=== PATIENT | male | born 1975 | race Caucasian/White ===

== ENCOUNTER 2016-05-01 12:31 | Day surgery (SDC) | payer BC ==
[2016-04-29 11:01] VITALS: BMI 24.3
[~2016-05-01 12:31] MED LIST: LACTATED RINGERS 1,000 ML IV SCH; LIDOCAINE 1% 20 ML VIAL (10MG/ML) FOR IV START INTRADERMA PRN
[2016-05-01 12:50] VITALS: RESP 16; TEMP 997.7
[2016-05-01] MEDS ORDERED: PROPOFOL 10 MG/ML 20 ML VIAL IV ONE (13:50)
--- NOTE | 2016-05-01 13:51 | P.GSHP ---
History of Present Illness H&P Date: 05/01/16 Chief Complaint: Diverticulitis Is a 40-year-old male referred from Dr. Wilbur Bruno. Patient presents today for colonoscopy. He's had issues with diverticulitis. Past Medical History Past Medical History: Asthma, GERD/Reflux, GI Bleed Additional Past Medical History / Comment(s): HX Diverticulosis, colon polyp, rectal bleed. Asthma as a child. Arthritis mild bilateral hands/knees. History of Any Multi-Drug Resistant Organisms: None Reported Past Surgical History: Appendectomy Additional Past Surgical History / Comment(s): colonoscopies, polypectomy. Past Anesthesia/Blood Transfusion Reactions: No Reported Reaction Past Psychological History: No Psychological Hx Reported Additional Psychological History / Comment(s): Pt resides with his spouse. He is independent. Smoking Status: Current every day smoker Past Alcohol Use History: Occasional Additional Past Alcohol Use History / Comment(s): Pt states he started smoking about 1989, 1/2 PPD. He has quit during this time frame, once for 4 yrs. Past Drug Use History: None Reported - Past Family History Father Family Medical History: No Reported History Additional Family Medical History / Comment(s): Father is healthy and 69yrs old. Mother Family Medical History: Cancer, Pulmonary Embolus Additional Family Medical History / Comment(s): Mother had colon cancer. She is 68yrs old. Medications and Allergies Home Medications Medication Instructions Recorded Confirmed Type Psyllium Husk (with Sugar) 6 gm PO DAILY PRN 04/29/16 05/01/16 History [Metamucil Powder] Allergies Allergy/AdvReac Type Severity Reaction Status Date / Time No Known Drug Allergies Allergy Unknown Verified 05/01/16 12:46 Surgical - Exam Vital Signs Temp Pulse Resp BP Pulse Ox 997.7 F H 78 16 129/76 100 05/01/16 12:42 05/01/16 12:42 05/01/16 12:42 05/01/16 12:42 05/01/16 12:42 - General well developed, no distress - Eyes PERRL - ENT normal pinna - Neck no masses - Respiratory normal expansion - Cardiovascular Rhythm: regular - Abdomen Abdomen: soft, non tender Assessment and Plan Plan: Diverticulitis. We'll perform colonoscopy.
--- NOTE | 2016-05-01 14:02 | P.OP ---
Date of Procedure: 05/01/16 Preoperative Diagnosis: Diverticulitis Postoperative Diagnosis: Rectal polyp Severe diverticulosis of sigmoid colon Procedure(s) Performed: Colonoscopy Anesthesia: MAC Surgeon: Jose Juan Vail Pathology: other (Rectal polyp) Condition: stable Disposition: PACU Description of Procedure: The patient's placed on the endoscopy table in the lateral position. He received IV sedation. Digital rectal exam was performed which revealed no abnormalities. The flexible colonoscope was then placed the patient's anus and passed throughout the entire colon. The ileocecal valve was visualized. The cecum, ascending and transverse colon appeared normal. The scope was brought back the descending colon was a few scattered diverticula. Scope was then brought back and the sigmoid colon and there is more extensive diverticular disease. There is some evidence of inflammation of the mucosa. The scope was then brought back the rectum and a small polyp was seen. This removed the forcep. The scope was then withdrawn from patient.
[2016-05-01 14:20] VITALS: BP 115/70; PULSE 68
== END 2016-05-01 14:44 | disposition home or self-care (01) ==
LOC: ORWHC2ENDO 12:31
PROVIDERS: ATTEND Surgery
DX: K62.1 Rectal polyp (principal); K57.30 Diverticulosis of large intestine without perforation or abscess without bleeding; Z80.0 Family history of malignant neoplasm of digestive organs; F17.200 Nicotine dependence, unspecified, uncomplicated; Z79.899 Other long term (current) drug therapy; Z79.2 Long term (current) use of antibiotics
CPT/HCPCS: 88305; 45380; J2704

== ENCOUNTER → 2016-05-20 | Outpatient (CLI) | payer BC ==
[2016-05-20 12:27] LABS: Potassium 4.6 mmol/L (3.5-5.1)
[2016-05-20 12:29] LABS: CH 29.8; CHCM 31.7; HCT 45.9 % (39.0-53.0); HDW 2.29; MCH 29.3 pg (25.0-35.0); MCHC 31.1 g/dL (31.0-37.0); MCV 94.2 fL (80.0-100.0); Mean Platelet Volume 7.2; RBC 4.87 m/uL (4.30-5.90); WBC 5.7 k/uL (3.8-10.6)
[2016-05-20 12:37] LABS: HGB 14.3 gm/dL (13.0-17.5)
== END | disposition home or self-care (01) ==
LOC: LABPAT 11:30
PROVIDERS: ATTEND Surgery
DX: Z01.812 Encounter for preprocedural laboratory examination (principal)
CPT/HCPCS: 80051; 85027

== ENCOUNTER 2016-05-21 07:45 | Inpatient (IN) | payer BC ==
[2016-05-16 08:48] VITALS: BMI 24.4
[~2016-05-21 07:45] MED LIST changes: +DEXAMETHASONE SOD PHOSPHATE 10 MG/ML 1 ML VIAL IV ONE; +HEPARIN SODIUM,PORCINE 5,000 UNIT/ML 1 ML VIAL SQ ONE; +HYDROmorphone 1 MG/ML 1 ML SYRINGE IVP PRN; -LACTATED RINGERS 1,000 ML IV SCH; +MIDAZOLAM 2 MG/2 ML VIAL IV PRN; +ONDANSETRON 4 MG/2 ML VIAL IVP ONE; +SCOPOLAMINE 1.5MG/72HR PATCH TRANSDERM ONE; +ceFAZolin 2 GM in SODIUM CHLORIDE 0.9% 100 ML IVPB ONE; +metroNIDAZOLE-NS PMX 500 MG in SALINE 1 100ML.BAG IVPB ONE
[2016-05-21] MEDS: LACTATED RINGERS 1,000 ML IV SCH (08:19)
[2016-05-21] MEDS ORDERED: MIDAZOLAM 2 MG/2 ML VIAL IV ONE (08:47)
[2016-05-21] MEDS ORDERED: fentaNYL (PF) 50 MCG/ML 5 ML AMP IVP STA (08:48)
[2016-05-21 08:51] LABS: Potassium 4.2 mmol/L (3.5-5.1)
--- NOTE | 2016-05-21 09:21 | P.GSHP ---
History of Present Illness H&P Date: 05/21/16 Chief Complaint: History of perforated diverticulitis 's is a 40-year-old male from Dr. Wilbur Bruno. Patient has extensive history of diverticulitis. He's had a recent hospital for perforated diverticula is. He presents today for low anterior section. Patient aware the risk of colostomy. - Constitutional Constitutional: Reports as per HPI Past Medical History Past Medical History: Asthma, GERD/Reflux, GI Bleed Additional Past Medical History / Comment(s): HX Diverticulosis, colon polyp, rectal bleed. Asthma as a child. Arthritis mild bilateral hands/knees. History of Any Multi-Drug Resistant Organisms: None Reported Past Surgical History: Appendectomy Additional Past Surgical History / Comment(s): colonoscopies, polypectomy. Past Anesthesia/Blood Transfusion Reactions: No Reported Reaction Additional Past Anesthesia/Blood Transfusion Reaction / Comment(s): no hx blood transfusion Past Psychological History: No Psychological Hx Reported Additional Psychological History / Comment(s): Pt resides with his spouse. He is independent. Smoking Status: Current every day smoker Past Alcohol Use History: Occasional Additional Past Alcohol Use History / Comment(s): Pt states he started smoking about 1989, 1/2 PPD. He has quit during this time frame, once for 4 yrs. Past Drug Use History: None Reported - Past Family History Father Family Medical History: Vascular Disorder Additional Family Medical History / Comment(s): Father is healthy and 69yrs old. Mother Family Medical History: Cancer, Pulmonary Embolus Additional Family Medical History / Comment(s): Mother had colon cancer. She is 68yrs old. Medications and Allergies Home Medications Medication Instructions Recorded Confirmed Type Psyllium Husk (with Sugar) 6 gm PO DAILY PRN 04/29/16 05/21/16 History [Metamucil Powder] Allergies Allergy/AdvReac Type Severity Reaction Status Date / Time No Known Drug Allergies Allergy Unknown Verified 05/16/16 08:42 Surgical - Exam Vital Signs Temp Pulse Resp BP Pulse Ox 98.1 F 82 16 132/66 98 05/21/16 08:28 05/21/16 08:28 05/21/16 08:28 05/21/16 08:28 05/21/16 08:28 - General well developed, no distress - Eyes PERRL - ENT normal pinna - Neck no masses - Respiratory normal expansion - Cardiovascular Rhythm: regular - Abdomen Abdomen: soft Results - Labs 05/21/16 08:35 Diabetes panel 05/21/16 Range/Units 08:35 Potassium 4.2 (3.5-5.1) mmol/L Pituitary panel 05/21/16 Range/Units 08:35 Potassium 4.2 (3.5-5.1) mmol/L Adrenal panel 05/21/16 Range/Units 08:35 Potassium 4.2 (3.5-5.1) mmol/L Assessment and Plan Plan: History of diverticula is. We'll perform low anterior resection.
[2016-05-21] MEDS ORDERED: NALOXONE 0.4 MG/ML 1 ML VIAL IV PRN (09:24)
[2016-05-21] MEDS ORDERED: GLYCOPYRROLATE 0.2 MG/ML 2 ML VIAL ONE (09:32)
[2016-05-21] MEDS ORDERED: HYDROmorphone (PF) 1 MG/ML ONE (09:32)
[2016-05-21] MEDS ORDERED: PROPOFOL 10 MG/ML 20 ML VIAL IV ONE (09:32)
[2016-05-21] MEDS ORDERED: fentaNYL (PF) 50 MCG/ML 2 ML AMP ONE (09:32)
[2016-05-21] MEDS ORDERED: MIDAZOLAM 2 MG/2 ML VIAL ONE (09:32)
[2016-05-21] MEDS ORDERED: NEOSTIGMINE 1 MG/ML 10 ML VIAL ONE (09:32)
[2016-05-21] MEDS ORDERED: ROCURONIUM BROMIDE 10 MG/ML 10 ML VIAL IV ONE (09:32)
[2016-05-21] MEDS ORDERED: LIDOCAINE 1% INJ 10MG/ML (20 ML MDV) ONE (09:32)
[2016-05-21] MEDS ORDERED: LACTATED RINGERS 1,000 ML IV ONE (10:34)
[2016-05-21] MEDS ORDERED: HYDROmorphone 1 MG/ML 1 ML SYRINGE IVP PRN (11:13)
[2016-05-21] MEDS ORDERED: BENZOCAINE/MENTHOL LOZENG 1 EACH LOZENGE MUCOUS MEM PRN (11:13)
[2016-05-21] MEDS ORDERED: ONDANSETRON 4 MG/2 ML VIAL IVP PRN (11:13)
--- NOTE | 2016-05-21 11:14 | P.OP ---
Date of Procedure: 05/21/16 Preoperative Diagnosis: Diverticulitis Postoperative Diagnosis: Diverticulitis Procedure(s) Performed: Low anterior resection Anesthesia: IRON Surgeon: Jose Juan Vail Estimated Blood Loss (ml): 10 Pathology: other Condition: stable Disposition: PACU Description of Procedure: The patient's placed on the operative table in the supine position. He received general anesthesia. His abdomen was prepped and draped usual sterile fashion after being placed in dorsal lithotomy position. An infra local skin incision was made and then using left cautery the subcutaneous tissue divided. The fascia was opened midline and the abdomen was entered. The Bookwalter retractor was used for retraction. The; appeared to be obviously inflamed and have evidence of diverticulitis. The colon was mobilized medially and then the rectum was transected with the ROSENDO stapler. Using the Harmonic scissors the mesentery the bowel was divided. The proximal colon was transected with a GI stapler. And then the pursestring device was applied to the proximal colon. The pursestring device was fired and then the hydro-gripwas placed across the proximal colon and then colon was opened. The anvil for the 25 mm EEA stapler was placed into the colon. The pursestring was secured. Next the EEA stapler was placed in patient's anus and the spike was driven through the rectal staple line. The anvil was then connected to the stapler and then the stapler was closed and fired. The stapler was then withdrawn. 2 intact doughnut rings were removed and stapler. The anastomosis was checked under air insufflation. There is no evidence of any leak. At this point the abdomen was irrigated. There is no bleeding seen. The fascia was closed loop #1 he has suture. The skin was closed chance. Patient was sent to recovery in stable condition.
[2016-05-21] MEDS: BUPIVACAINE 0.5% EPIDURAL PRN ×2 (11:58→12:10)
[2016-05-21] MEDS: SODIUM CHLORIDE 0.9% EPIDURAL PRN ×2 (11:58→12:10)
[2016-05-21] MEDS: HYDROMORPHONE EPIDURAL PRN ×2 (11:58→12:10)
[2016-05-21 12:16] LABS: ALT 47 U/L (21-72); AST 25 U/L (17-59); Alkaline Phosphatase 57 U/L (38-126); Anion Gap 9 mmol/L; Blood Urea Nitrogen 8 mg/dL (9-20); Calcium 9.1 mg/dL (8.4-10.2); Carbon Dioxide 25 mmol/L (22-30); Chloride 106 mmol/L (98-107); Glucose 157 mg/dL (74-99); Non-African American GFR(MDRD) >60 (>60 ml/min/1.73 sqM); Sodium 140 mmol/L (137-145); Total Bilirubin 0.7 mg/dL (0.2-1.3); Total Protein 6.8 g/dL (6.3-8.2)
[2016-05-21 13:28] LABS: Basophils % (A) 0 %; CH 29.3; CHCM 31.3; Eosinophils # (A) 0.1 k/uL (0-0.7); Eosinophils % (A) 1 %; HCT 45.3 % (39.0-53.0); HDW 2.28; HGB 14.2 gm/dL (13.0-17.5); Luc # (Auto) 0.03; Luc % (Auto) 0; Lymphocytes # (A) 0.4 k/uL (1.0-4.8); Lymphocytes % (A) 3 %; MCH 29.5 pg (25.0-35.0); MCHC 31.5 g/dL (31.0-37.0); MCV 93.7 fL (80.0-100.0); Mean Platelet Volume 6.5; Monocytes # (A) 0.2 k/uL (0-1.0); Monocytes % (A) 2 %; Neutrophils # (A) 12.3 k/uL (1.3-7.7); Neutrophils % (A) 94 %; RBC 4.83 m/uL (4.30-5.90); RDW 12.7 % (11.5-15.5)
[2016-05-21] MEDS: D5-0.45% NACL WITH KCL 20MEQ/L 1,000 ML IV SCH ×2 (14:48→20:33)
[2016-05-21] MEDS: METOCLOPRAMIDE 5 MG/ML 2 ML VIAL IVP SCH ×3 (14:48→23:19)
[2016-05-21] MEDS ORDERED: INFLUENZA VACCINE (3YR+) 60 MCG/0.5 ML SYRINGE IM ONE (15:42)
[2016-05-21] MEDS: ALVIMOPAN 12 MG CAPSULE PO SCH (21:37)
[2016-05-21] MEDS: FAMOTIDINE 20 MG/2 ML VIAL IV SCH (21:37)
[2016-05-22] MEDS: D5-0.45% NACL WITH KCL 20MEQ/L 1,000 ML IV SCH ×3 (04:00→22:15)
[2016-05-22] MEDS: LACTATED RINGERS 1,000 ML IV SCH (06:16)
[2016-05-22] MEDS: METOCLOPRAMIDE 5 MG/ML 2 ML VIAL IVP SCH ×4 (06:21→23:53)
[2016-05-22 08:39] LABS: Basophils % (A) 0 %; CH 29.7; CHCM 32.2; Eosinophils % (A) 0 %; HCT 38.6 % (39.0-53.0); HDW 2.26; HGB 11.9 gm/dL (13.0-17.5); Luc # (Auto) 0.06; Luc % (Auto) 1; Lymphocytes # (A) 0.9 k/uL (1.0-4.8); Lymphocytes % (A) 8 %; MCH 28.6 pg (25.0-35.0); MCHC 30.9 g/dL (31.0-37.0); MCV 92.5 fL (80.0-100.0); Mean Platelet Volume 7.3; Monocytes # (A) 0.7 k/uL (0-1.0); Monocytes % (A) 7 %; Neutrophils # (A) 9.1 k/uL (1.3-7.7); Neutrophils % (A) 84 %; RBC 4.17 m/uL (4.30-5.90); RDW 12.9 % (11.5-15.5); WBC 10.8 k/uL (3.8-10.6); WBC (Perox) 11.08
[2016-05-22 09:04] LABS: Anion Gap 8 mmol/L; Blood Urea Nitrogen 8 mg/dL (9-20); Calcium 8.5 mg/dL (8.4-10.2); Carbon Dioxide 24 mmol/L (22-30); Chloride 103 mmol/L (98-107); Glucose 151 mg/dL (74-99); Non-African American GFR(MDRD) >60 (>60 ml/min/1.73 sqM); Potassium 4.6 mmol/L (3.5-5.1); Sodium 135 mmol/L (137-145)
--- NOTE | 2016-05-22 09:31 | P.PN ---
Progress Note - Text Postoperative day 1 status post low anterior resection under general endotracheal anesthesia, an epidural catheter placed for postoperative analgesia , patient doing well with vital signs stable, epidural site okay, patient had no motor deficit, including he is currently on continuous infusion Dilaudid/ bupivacaine at 6 mL per hour, VAS 0/10 Assessment and plan= course of the one , patient doing well, good pain control, we will continue the same management
[2016-05-22] MEDS: ALVIMOPAN 12 MG CAPSULE PO SCH ×2 (09:38→21:37)
[2016-05-22] MEDS: FAMOTIDINE 20 MG/2 ML VIAL IV SCH ×2 (09:38→21:37)
[2016-05-22] MEDS: HYDROmorphone 1 MG/ML 1 ML SYRINGE IVP PRN ×3 (14:24→21:37)
--- NOTE | 2016-05-22 15:02 | P.PN ---
Subjective Principal diagnosis: Diverticulitis Patient is a 40-year-old male with a medical history significant for extensive diverticulitis with recent perforation presenting to the hospital for elective low anterior resection. Patient is evaluated on the medical floor where he is postop day #1. Patient is doing well. Denies chills, fevers, nausea, vomiting , shortness of breath, or chest pain. Patient states he barely has any incisional pain with epidural infusing. Patient denies flatus or bowel movements. Tolerating clear liquid diet. Urinary output adequate. T-max the last 24 hours 99.2. Hemodynamically stable.WBC decreased to 10.8. Hemoglobin decreased to 11.9. Objective - Vital Signs Vital signs: Vital Signs Temp 97.6 F 05/22/16 07:00 Pulse 96 05/22/16 07:00 Resp 18 05/22/16 07:00 BP 111/64 05/22/16 07:00 Pulse Ox 95 05/22/16 07:00 Intake & Output 05/21/16 05/22/16 05/22/16 18:59 06:59 18:59 Intake Total 2114 68.617 Output Total 700 1400 Balance 1414 -1331.383 Intake: IV 1614 Intake, IV Titration 68.617 Amount Bupivacaine (Pf) 0.5% 37. 68.617 5 ml HYDROmorphone 5 mg In Sodium Chloride 0.9% 210 ml @ Per Protocol EPIDURAL .Q0M PRN Rx#: [id number] Oral 500 Output: Urine 650 1400 Estimated Blood Loss 50 Other: Voiding Method Indwelling Catheter Indwelling Catheter Indwelling Catheter # Voids 1 - Exam GENERAL: Pt awake and alert, well-appearing, well-nourished, and in no acute distress. LUNGS: Breath sounds clear to auscultation bilaterally. No wheezes, rales, or rhonchi. HEART: Heart S1, S2, no S3 or S4. Regular rate and rhythm. No murmurs, rubs or gallops. ABDOMEN: Soft, mild incisional tenderness, nondistended, normoactive bowel sounds. No guarding, no rebound. Abdominal dressing with old sanguinous drainage. NEUROLOGICAL: Pt oriented x 3. - Labs CBC & Chem 7: 05/22/16 08:17 05/22/16 08:17 Labs: Abnormal Lab Results - Last 24 Hours (Table) 05/22/16 05/22/16 Range/Units 08:17 08:17 WBC 10.8 H (3.8-10.6) k/uL RBC 4.17 L (4.30-5.90) m/uL Hgb 11.9 L (13.0-17.5) gm/dL Hct 38.6 L (39.0-53.0) % MCHC 30.9 L (31.0-37.0) g/dL Neutrophils # 9.1 H (1.3-7.7) k/uL Lymphocytes # 0.9 L (1.0-4.8) k/uL Sodium 135 L (137-145) mmol/L BUN 8 L (9-20) mg/dL Glucose 151 H (74-99) mg/dL Assessment and Plan Plan: Impression: 1. Diverticulitis status post low anterior resection on 05/21/2016. Plan: Continue to monitor patient. Continue clear liquid diet. Continue IV hydration. Continue supportive treatment and pain management. Increase activity. Continue incentive spirometry 10 times an hour while awake. Repeat CBC and BMP in a.m. Continue follow with medical team. The above impression and plan have been discussed and directed by Dr. Vail. Isabell ABAD acting as scribe for Dr. Vail.
[2016-05-22] MEDS: BUPIVACAINE 0.5% EPIDURAL PRN (15:15)
[2016-05-22] MEDS: HYDROMORPHONE EPIDURAL PRN (15:15)
[2016-05-22] MEDS: SODIUM CHLORIDE 0.9% EPIDURAL PRN (15:15)
--- NOTE | 2016-05-22 16:24 | P.CONS ---
History of Present Illness - Reason for Consult Consult date: 05/22/16 Medical management Requesting physician: Jose Juan Vail - Chief Complaint Abdominal pain - History of Present Illness Patient is a 40-year-old male with a medical history significant for extensive diverticulitis with recent perforation presenting to the hospital for elective low anterior resection. Patient is evaluated on the medical floor where he is postop day #1. Patient is doing well. Denies chills, fevers, nausea, vomiting , shortness of breath, or chest pain. Patient states he barely has any incisional pain with epidural infusing. Patient denies flatus or bowel movements. Tolerating clear liquid diet. Urinary output adequate. T-max the last 24 hours 99.2. Hemodynamically stable.WBC decreased to 10.8. Hemoglobin decreased to 11.9. Past Medical History Past Medical History: Asthma, GERD/Reflux, GI Bleed Additional Past Medical History / Comment(s): HX Diverticulosis, colon polyp, rectal bleed. Asthma as a child. Arthritis mild bilateral hands/knees. History of Any Multi-Drug Resistant Organisms: None Reported Past Surgical History: Appendectomy Additional Past Surgical History / Comment(s): colonoscopies, polypectomy; low anterior bowel resection. Past Anesthesia/Blood Transfusion Reactions: No Reported Reaction Additional Past Anesthesia/Blood Transfusion Reaction / Comm: no hx blood transfusion Past Psychological History: No Psychological Hx Reported Additional Psychological History / Comment(s): Pt resides with his spouse. He is independent. Smoking Status: Current every day smoker Past Alcohol Use History: Occasional Additional Past Alcohol Use History / Comment(s): Pt states he started smoking about 1989, 1/2 PPD. He has quit during this time frame, once for 4 yrs. Past Drug Use History: None Reported - Past Family History Father Family Medical History: Vascular Disorder Additional Family Medical History / Comment(s): Father is healthy and 69yrs old. Mother Family Medical History: Cancer, Pulmonary Embolus Additional Family Medical History / Comment(s): Mother had colon cancer. She is 68yrs old. Medications and Allergies Home Medications Medication Instructions Recorded Confirmed Type Psyllium Husk (with Sugar) 6 gm PO DAILY PRN 04/29/16 05/21/16 History [Metamucil Powder] Allergies Allergy/AdvReac Type Severity Reaction Status Date / Time No Known Drug Allergies Allergy Unknown Verified 05/16/16 08:42 Physical Exam Vitals: Vital Signs Temp Pulse Resp BP BP Pulse Ox 05/22/16 15:00 97.3 F L 71 16 121/68 94 L 05/22/16 07:00 97.6 F 96 18 111/64 95 05/21/16 23:00 99.2 F 84 16 103/70 94 L 05/21/16 19:00 76 125/77 113/81 94 L Intake and Output 05/22/16 05/22/16 05/22/16 06:59 14:59 22:59 Intake Total 68.617 66.5 Output Total 600 1000 Balance -531.383 -1000 66.5 Intake: Intake, IV Titration 68.617 66.5 Amount Bupivacaine (Pf) 0.5% 37. 68.617 66.5 5 ml HYDROmorphone 5 mg In Sodium Chloride 0.9% 210 ml @ Per Protocol EPIDURAL .Q0M PRN Rx#: [id number] Output: Urine 600 1000 Other: Voiding Method Indwelling Catheter Indwelling Catheter GENERAL: Pt awake and alert, well-appearing, well-nourished, and in no acute distress. HEAD: Atraumatic, normocephalic. EYES: Pupils equal, round, and reactive to light, extraocular movements intact, sclera anicteric, conjunctiva are normal. ENT: Oropharynx clear without exudates. Moist mucous membranes. Tongue smooth, pink, no lesions, protrudes in midline. NECK:Normal range of motion, supple without lymphadenopathy or JVD. No carotid bruits. Thyroid midline, small and firm without palpable masses. LUNGS: Breath sounds clear to auscultation bilaterally. No wheezes, rales, or rhonchi. HEART: Heart S1, S2, no S3 or S4. No murmurs, rubs or gallops. ABDOMEN: Soft, nontender, nondistended, normoactive bowel sounds. No guarding, no rebound. Abdominal dressing with old sanguinous drainage. EXTREMITIES: 2+ peripheral pulses. No edema.No calf tenderness. NEUROLOGICAL: Pt oriented x 3. No focal deficits. Strength and sensation grossly intact. PSYCH: Normal mood, normal affect. SKIN: Warm, dry, intact. Normal turgor. No rashes or lesions. Results CBC & Chem 7: 05/22/16 08:17 05/22/16 08:17 Labs: Abnormal Lab Results - Last 24 Hours (Table) 05/22/16 05/22/16 Range/Units 08:17 08:17 WBC 10.8 H (3.8-10.6) k/uL RBC 4.17 L (4.30-5.90) m/uL Hgb 11.9 L (13.0-17.5) gm/dL Hct 38.6 L (39.0-53.0) % MCHC 30.9 L (31.0-37.0) g/dL Neutrophils # 9.1 H (1.3-7.7) k/uL Lymphocytes # 0.9 L (1.0-4.8) k/uL Sodium 135 L (137-145) mmol/L BUN 8 L (9-20) mg/dL Glucose 151 H (74-99) mg/dL Assessment and Plan Plan: Impression: 1. Diverticulitis status post low anterior resection on 05/21/2016. 2. Leukocytosis, suspect reactive, improving. Hemoglobin 10.8. 3. Anemia, postop. Suspect secondary to blood loss and hemodilution. 4. Hyponatremia. 5. Increased random blood sugar, suspect reactive. 6. GERD. 7. History of diverticulosis. 8. Osteoarthritis multiple joints. 9. Nicotine dependence. Plan: Continue to monitor patient. Continue surgical management by surgical service. Continue current medications. Continue GI and DVT prophylaxis. Continue IV hydration. Continue supportive treatment and pain management. Increase activity. Continue incentive spirometry 10 times an hour while awake. Repeat CBC and BMP in a.m. Continue follow with surgical team. The above impression and plan have been discussed and directed by Dr. Stone. Isabell ABAD acting as scribe for Dr. Stone.
[2016-05-23] MEDS: D5-0.45% NACL WITH KCL 20MEQ/L 1,000 ML IV SCH ×3 (05:25→19:45)
[2016-05-23] MEDS: HYDROmorphone 1 MG/ML 1 ML SYRINGE IVP PRN ×4 (06:32→22:35)
[2016-05-23] MEDS: METOCLOPRAMIDE 5 MG/ML 2 ML VIAL IVP SCH ×4 (06:32→23:56)
--- NOTE | 2016-05-23 08:37 | P.CON ---
Consult Note - . Assessment/Plan:: pod number 2 status post epidural doing ok; will dc epidural today possible discharge tomorrow; no neuro events
[2016-05-23] MEDS: FAMOTIDINE 20 MG/2 ML VIAL IV SCH ×2 (09:45→20:40)
[2016-05-23] MEDS: ALVIMOPAN 12 MG CAPSULE PO SCH ×2 (09:45→20:53)
[2016-05-23 10:00] LABS: Basophils % (A) 0 %; CH 29.5; CHCM 31.6; Eosinophils # (A) 0.1 k/uL (0-0.7); Eosinophils % (A) 1 %; HCT 37.1 % (39.0-53.0); HGB 11.6 gm/dL (13.0-17.5); Luc % (Auto) 1; Lymphocytes # (A) 1.8 k/uL (1.0-4.8); Lymphocytes % (A) 24 %; MCH 29.3 pg (25.0-35.0); MCHC 31.4 g/dL (31.0-37.0); MCV 93.4 fL (80.0-100.0); Mean Platelet Volume 7.7; Monocytes # (A) 0.7 k/uL (0-1.0); Monocytes % (A) 10 %; Neutrophils % (A) 65 %; RBC 3.97 m/uL (4.30-5.90); RDW 12.8 % (11.5-15.5); WBC 7.7 k/uL (3.8-10.6); WBC (Perox) 8.71
[2016-05-23 10:21] LABS: Anion Gap 9 mmol/L; Blood Urea Nitrogen 6 mg/dL (9-20); Calcium 8.4 mg/dL (8.4-10.2); Carbon Dioxide 28 mmol/L (22-30); Chloride 102 mmol/L (98-107); Glucose 94 mg/dL (74-99); Non-African American GFR(MDRD) >60 (>60 ml/min/1.73 sqM); Sodium 139 mmol/L (137-145)
--- NOTE | 2016-05-23 15:22 | P.PN ---
Subjective Principal diagnosis: Diverticulitis Patient is a 40-year-old male with a medical history significant for extensive diverticulitis with recent perforation presenting to the hospital for elective low anterior resection. Patient is evaluated on the medical floor where he is postop day #2. Patient is doing well. Denies chills, fevers, nausea, vomiting , shortness of breath, or chest pain. Incisional pain controlled. Reports flatus without bowel movements. Tolerating clear liquid diet. Urinary output adequate. Afebrile. Hemodynamically stable. No evidence of leukocytosis. Hemoglobin stable at 11.6. Objective - Vital Signs Vital signs: Vital Signs Temp 97.3 F L 05/23/16 07:00 Pulse 66 05/23/16 07:00 Resp 16 05/23/16 07:00 BP 114/58 05/23/16 07:00 Pulse Ox 94 L 05/23/16 07:00 Intake & Output 05/22/16 05/23/16 05/23/16 18:59 06:59 18:59 Intake Total 66.5 87.8 1000 Output Total 1000 2100 Balance -933.5 -2012.2 1000 Intake: Intake, IV Titration 66.5 87.8 1000 Amount Bupivacaine (Pf) 0.5% 37. 66.5 87.8 5 ml HYDROmorphone 5 mg In Sodium Chloride 0.9% 210 ml @ Per Protocol EPIDURAL .Q0M PRN Rx#: [id number] D5-0.45% NaCl with KCl 1000 20Meq/l 1,000 ml @ 125 mls/hr IV .Q8H LEEROY Rx#: [id number] Output: Urine 1000 2100 Other: Voiding Method Indwelling Catheter Indwelling Catheter Indwelling Catheter - Exam GENERAL: Pt awake and alert, well-appearing, well-nourished, and in no acute distress. LUNGS: Breath sounds clear to auscultation bilaterally. No wheezes, rales, or rhonchi. HEART: Heart S1, S2, no S3 or S4. Regular rate and rhythm. No murmurs, rubs or gallops. ABDOMEN: Soft, mild incisional tenderness, nondistended, normoactive bowel sounds. No guarding, no rebound. Abdominal dressing with old sanguinous drainage. NEUROLOGICAL: Pt oriented x 3. - Labs CBC & Chem 7: 05/23/16 08:17 05/23/16 08:17 Labs: Abnormal Lab Results - Last 24 Hours (Table) 05/23/16 05/23/16 Range/Units 08:17 08:17 RBC 3.97 L (4.30-5.90) m/uL Hgb 11.6 L (13.0-17.5) gm/dL Hct 37.1 L (39.0-53.0) % BUN 6 L (9-20) mg/dL Assessment and Plan Plan: Impression: 1. Diverticulitis status post low anterior resection on 05/21/2016. 2. Leukocytosis, suspect reactive, resolved. 3. Anemia, postop. Suspect secondary to blood loss and hemodilution. 4. History of diverticulosis. Plan: Continue to monitor patient. Discontinue epidural catheter and Kimball catheter. Increase diet to full liquids. Continue current medications. Continue GI and DVT prophylaxis. Continue IV hydration. Continue supportive treatment and pain management. Increase activity. Continue incentive spirometry 10 times an hour while awake. Repeat CBC and BMP in a.m. Continue follow with medical team. The above impression and plan have been discussed and directed by Dr. Vail. Isabell ABAD acting as scribe for Dr. Vail.
--- NOTE | 2016-05-23 16:39 | P.PN ---
Subjective Principal diagnosis: Diverticulitis Patient is a 40-year-old male with a medical history significant for extensive diverticulitis with recent perforation presenting to the hospital for elective low anterior resection. Patient is evaluated on the medical floor where he is postop day #3. Patient is doing well. Denies chills, fevers, nausea, vomiting , shortness of breath, or chest pain. Incisional pain controlled. Reports flatus without bowel movements. Tolerating clear liquid diet. Urinary output adequate. Afebrile. Hemodynamically stable. No evidence of leukocytosis. Hemoglobin stable at 11.6. Objective - Vital Signs Vital signs: Vital Signs Temp 96.6 F L 05/23/16 15:00 Pulse 65 05/23/16 15:00 Resp 16 05/23/16 15:00 BP 113/77 05/23/16 15:00 Pulse Ox 95 05/23/16 15:00 Intake & Output 05/22/16 05/23/16 05/23/16 18:59 06:59 18:59 Intake Total 66.5 87.8 1000 Output Total 1000 2100 Balance -933.5 -2012.2 1000 Intake: Intake, IV Titration 66.5 87.8 1000 Amount Bupivacaine (Pf) 0.5% 37. 66.5 87.8 5 ml HYDROmorphone 5 mg In Sodium Chloride 0.9% 210 ml @ Per Protocol EPIDURAL .Q0M PRN Rx#: [id number] D5-0.45% NaCl with KCl 1000 20Meq/l 1,000 ml @ 125 mls/hr IV .Q8H LEEROY Rx#: [id number] Output: Urine 1000 2100 Other: Voiding Method Indwelling Catheter Indwelling Catheter Indwelling Catheter - Exam GENERAL: Pt awake and alert, well-appearing, well-nourished, and in no acute distress. HEAD: Atraumatic, normocephalic. EYES: Pupils equal, round, and reactive to light, extraocular movements intact, sclera anicteric, conjunctiva are normal. ENT: Oropharynx clear without exudates. Moist mucous membranes. Tongue smooth, pink, no lesions, protrudes in midline. NECK:Normal range of motion, supple without lymphadenopathy or JVD. No carotid bruits. Thyroid midline, small and firm without palpable masses. LUNGS: Breath sounds clear to auscultation bilaterally. No wheezes, rales, or rhonchi. HEART: Heart S1, S2, no S3 or S4. No murmurs, rubs or gallops. ABDOMEN: Soft, nontender, nondistended, normoactive bowel sounds. No guarding, no rebound. Abdominal dressing with old sanguinous drainage. EXTREMITIES: 2+ peripheral pulses. No edema.No calf tenderness. NEUROLOGICAL: Pt oriented x 3. No focal deficits. Strength and sensation grossly intact. PSYCH: Normal mood, normal affect. SKIN: Warm, dry, intact. Normal turgor. No rashes or lesions. - Labs CBC & Chem 7: 05/23/16 08:17 05/23/16 08:17 Labs: Abnormal Lab Results - Last 24 Hours (Table) 05/23/16 05/23/16 Range/Units 08:17 08:17 RBC 3.97 L (4.30-5.90) m/uL Hgb 11.6 L (13.0-17.5) gm/dL Hct 37.1 L (39.0-53.0) % BUN 6 L (9-20) mg/dL Assessment and Plan Plan: Impression: 1. Diverticulitis status post low anterior resection on 05/21/2016. 2. Leukocytosis, suspect reactive, improving. 3. Anemia, postop. Suspect secondary to blood loss and hemodilution. Hemoglobin stable at 11.6. 4. Hyponatremia, resolved. 5. Increased random blood sugar, suspect reactive. 6. GERD. 7. History of diverticulosis. 8. Osteoarthritis multiple joints. 9. Nicotine dependence. Plan: Continue to monitor patient. Continue surgical management by surgical service. Continue current medications. Continue GI and DVT prophylaxis. Continue IV hydration. Continue supportive treatment and pain management. Increase activity. Continue incentive spirometry 10 times an hour while awake. Repeat CBC and BMP in a.m. The above impression and plan have been discussed and directed by Dr. Stone. Isabell ABAD acting as scribe for Dr. Stone.
[2016-05-24] MEDS: D5-0.45% NACL WITH KCL 20MEQ/L 1,000 ML IV SCH ×2 (05:01→12:24)
[2016-05-24] MEDS: METOCLOPRAMIDE 5 MG/ML 2 ML VIAL IVP SCH ×2 (06:20→12:25)
[2016-05-24 07:55] VITALS: BP 115/70; PULSE 61; RESP 18; TEMP 97.1
[2016-05-24] MEDS: FAMOTIDINE 20 MG/2 ML VIAL IV SCH (08:28)
[2016-05-24] MEDS: ALVIMOPAN 12 MG CAPSULE PO SCH (08:28)
[2016-05-24] MEDS: HYDROmorphone 1 MG/ML 1 ML SYRINGE IVP PRN (08:42)
[2016-05-24 08:44] LABS: Basophils % (A) 1 %; CH 29.3; CHCM 31.4; Eosinophils # (A) 0.2 k/uL (0-0.7); Eosinophils % (A) 3 %; HCT 38.1 % (39.0-53.0); HGB 12.4 gm/dL (13.0-17.5); Luc # (Auto) 0.19; Luc % (Auto) 3; Lymphocytes # (A) 1.8 k/uL (1.0-4.8); Lymphocytes % (A) 31 %; MCH 30.5 pg (25.0-35.0); MCHC 32.6 g/dL (31.0-37.0); MCV 93.5 fL (80.0-100.0); Mean Platelet Volume 6.4; Monocytes # (A) 0.6 k/uL (0-1.0); Monocytes % (A) 10 %; Neutrophils # (A) 3.1 k/uL (1.3-7.7); Neutrophils % (A) 53 %; RBC 4.07 m/uL (4.30-5.90); RDW 12.6 % (11.5-15.5); WBC 5.9 k/uL (3.8-10.6); WBC (Perox) 6.47
[2016-05-24 09:00] LABS: Anion Gap 9 mmol/L; Blood Urea Nitrogen 6 mg/dL (9-20); Calcium 8.8 mg/dL (8.4-10.2); Carbon Dioxide 28 mmol/L (22-30); Chloride 103 mmol/L (98-107); Glucose 83 mg/dL (74-99); Non-African American GFR(MDRD) >60 (>60 ml/min/1.73 sqM); Potassium 4.2 mmol/L (3.5-5.1); Sodium 140 mmol/L (137-145)
--- NOTE | 2016-05-24 15:58 | P.PN ---
Subjective Principal diagnosis: Diverticulitis Patient is a 40-year-old male with a medical history significant for extensive diverticulitis with recent perforation presenting to the hospital for elective low anterior resection. Patient is evaluated on the medical floor where he is postop day #4. Patient is doing well. Denies chills, fevers, nausea, vomiting , shortness of breath, or chest pain. Incisional pain controlled. Reports flatus with bowel movements. Tolerating full liquid diet. Urinary output adequate. Afebrile. Hemodynamically stable. No evidence of leukocytosis. Hemoglobin stable at 12.4 Objective - Vital Signs Vital signs: Vital Signs Temp 97.1 F L 05/24/16 07:00 Pulse 61 05/24/16 07:00 Resp 18 05/24/16 08:00 BP 115/70 05/24/16 07:00 Pulse Ox 98 05/24/16 07:00 Intake & Output 05/23/16 05/24/16 05/24/16 18:59 06:59 18:59 Intake Total 1000 760 Balance 1000 760 Intake: Intake, IV Titration 1000 Amount D5-0.45% NaCl with KCl 1000 20Meq/l 1,000 ml @ 125 mls/hr IV .Q8H [facility] Rx#: [id number] Oral 760 Other: Voiding Method Indwelling Catheter Toilet Toilet # Voids 2 # Bowel Movements 1 - Exam GENERAL: Pt awake and alert, well-appearing, well-nourished, and in no acute distress. HEAD: Atraumatic, normocephalic. EYES: Pupils equal, round, and reactive to light, extraocular movements intact, sclera anicteric, conjunctiva are normal. ENT: Oropharynx clear without exudates. Moist mucous membranes. Tongue smooth, pink, no lesions, protrudes in midline. NECK:Normal range of motion, supple without lymphadenopathy or JVD. No carotid bruits. Thyroid midline, small and firm without palpable masses. LUNGS: Breath sounds clear to auscultation bilaterally. No wheezes, rales, or rhonchi. HEART: Heart S1, S2, no S3 or S4. No murmurs, rubs or gallops. ABDOMEN: Soft, nontender, nondistended, normoactive bowel sounds. No guarding, no rebound. Abdominal dressing with old sanguinous drainage. EXTREMITIES: 2+ peripheral pulses. No edema.No calf tenderness. NEUROLOGICAL: Pt oriented x 3. No focal deficits. Strength and sensation grossly intact. PSYCH: Normal mood, normal affect. SKIN: Warm, dry, intact. Normal turgor. No rashes or lesions. - Labs CBC & Chem 7: 05/24/16 07:48 05/24/16 07:48 Labs: Abnormal Lab Results - Last 24 Hours (Table) 05/24/16 05/24/16 Range/Units 07:48 07:48 RBC 4.07 L (4.30-5.90) m/uL Hgb 12.4 L (13.0-17.5) gm/dL Hct 38.1 L (39.0-53.0) % BUN 6 L (9-20) mg/dL Assessment and Plan Plan: Impression: 1. Diverticulitis status post low anterior resection on 05/21/2016. 2. Leukocytosis, suspect reactive, resolved. 3. Anemia, postop. Suspect secondary to blood loss and hemodilution. Hemoglobin stable at 12.4 4. Hyponatremia, resolved. 5. Increased random blood sugar, suspect reactive, resolved. 6. GERD. 7. History of diverticulosis. 8. Osteoarthritis multiple joints. 9. Nicotine dependence. Plan: Continue to monitor patient. Continue surgical management by surgical service. Continue current medications. Continue GI and DVT prophylaxis. Continue IV hydration. Continue supportive treatment and pain management. Increase activity. Continue incentive spirometry 10 times an hour while awake. From medical standpoint, patient's transfer discharged when cleared by surgery. Patient will follow-up with Dr. Stone in the outpatient setting. The above impression and plan have been discussed and directed by Dr. Stone. Isabell ABAD acting as scribe for Dr. Stone.
--- NOTE | 2016-05-24 17:31 | P.DS ---
Providers Date of admission: 05/21/16 07:50 Expected date of discharge: 05/24/16 Attending physician: Jose Juan Vail Consults: 05/21/16 11:13 Consult Physician Routine Consulting Provider: Wilbur Stone Consult Reason/Comments: Medical management Do you want consulting provider notified?: Yes Primary care physician: Wilbur Stone [facility] Course: Patient is a 40-year-old male with a medical history significant for extensive diverticulitis with recent perforation presenting to the hospital for elective low anterior resection. Patient tolerated procedure well. Patient had an uneventful postoperative course. Patient was discharged home in stable condition with follow-up in the outpatient setting. Discharge diagnoses: 1. Diverticulitis status post low anterior resection on 05/21/2016. 2. Leukocytosis, suspect reactive, resolved. 3. Anemia, postop. Suspect secondary to blood loss and hemodilution. 4. History of diverticulosis. The above impression and plan have been discussed and directed by Dr. Vail. Isabell ABAD acting as scribe for Dr. Vail. Procedures: Low anterior resection Patient Condition at Discharge: Good Plan - Discharge Summary New Discharge Prescriptions: HYDROcodone/APAP 7.5-325MG [[place] 7.5-325] 1 tab PO Q6HR PRN #28 tab PRN Reason: Pain Discharge Medication List HYDROcodone/APAP 7.5-325MG [[place] 7.5-325] 1 tab PO Q6HR PRN #28 tab 05/22/16 [ Rx] Follow up Appointment(s)/Referral(s): Wilbur Stone DO [Primary Care Provider] - 05/30/16 11:00 am Jose Juan Vail MD [STAFF PHYSICIAN] - 05/28/16 3:30 pm Patient Instructions/Handouts: Colectomy (DC), Staple Care (DC) Activity/Diet/Wound Care/Special Instructions: No heavy lifting, pushing, or pulling items greater than 10 pounds. Soft diet Shower daily, no soaking in bath tubs, pools, or hot tubs. No driving while taking pain medication. Notify surgeon with any signs or symptoms of infection, increased pain, or not tolerating diet. NO smoking, cessation information provided. Discharge Disposition: HOME SELF-CARE
== END 2016-05-24 12:55 | disposition home or self-care (01) | DRG 330 ==
LOC: 2ORWHC 07:50 → 4MS4W 11:10
PROVIDERS: ADMIT Surgery; ATTEND Surgery
PROC: 0DTN0ZZ Resection of Sigmoid Colon, Open Approach (ICD-10-PCS; principal; 2016-05-21 09:15)
DX: K57.92 Diverticulitis of intestine, part unspecified, without perforation or abscess without bleeding (principal); E87.1 Hypo-osmolality and hyponatremia; D62 Acute posthemorrhagic anemia; D72.829 Elevated white blood cell count, unspecified; F17.200 Nicotine dependence, unspecified, uncomplicated; J45.909 Unspecified asthma, uncomplicated; K21.9 Gastro-esophageal reflux disease without esophagitis; M15.9 Polyosteoarthritis, unspecified; Z80.0 Family history of malignant neoplasm of digestive organs; Z86.010 Personal history of colon polyps
CPT/HCPCS: 80048; 80053; 85025; 86850; 86900; 86901; 88307

== ENCOUNTER → 2017-06-30 | Outpatient (CLI) | payer BC ==
[2017-06-30 14:02] LABS: HCT 44.1 % (39.0-53.0); HGB 14.6 gm/dL (13.0-17.5); MCH 30.1 pg (25.0-35.0); MCHC 33.1 g/dL (31.0-37.0); Mean Platelet Volume 6.4; Platelet Count 351 k/uL (150-450); RBC 4.85 m/uL (4.30-5.90); WBC 6.3 k/uL (3.8-10.6)
== END | disposition home or self-care (01) ==
LOC: LABPAT 13:31
PROVIDERS: ATTEND Surgery
DX: Z01.812 Encounter for preprocedural laboratory examination (principal)
CPT/HCPCS: 36415; 85027

== ENCOUNTER 2017-07-01 06:46 | Day surgery (SDC) | payer BC ==
[2017-06-27 15:35] VITALS: BMI 25.7
[~2017-07-01 06:46] MED LIST changes: -HYDROmorphone 1 MG/ML 1 ML SYRINGE IVP PRN; +LACTATED RINGERS 1,000 ML IV SCH; -MIDAZOLAM 2 MG/2 ML VIAL IV PRN; +MORPHINE SULFATE 2 MG/ML SYRINGE IV PRN; -ceFAZolin 2 GM in SODIUM CHLORIDE 0.9% 100 ML IVPB ONE; +ceFAZolin IN SWFI 2 GM/20 ML SYRINGE IVP ONE; -metroNIDAZOLE-NS PMX 500 MG in SALINE 1 100ML.BAG IVPB ONE
--- NOTE | 2017-07-01 08:04 | P.GSHP ---
History of Present Illness H&P Date: 07/01/17 Chief Complaint: Incisional hernia This is a 41-year-old male presents today for laparoscopic robotic system repair of incisional hernia. Patient is a previous history of low anterior resection. He developed an incisional hernia at the superior portion of his scar. Past Medical History Past Medical History: GI Bleed, Osteoarthritis (OA) Additional Past Medical History / Comment(s): HX Diverticulitis , colon polyp, rectal bleed. , Asthma as a child. , Has incisional hernia. History of Any Multi-Drug Resistant Organisms: None Reported Past Surgical History: Appendectomy, Bowel Resection Additional Past Surgical History / Comment(s): colonoscopies, polypectomy; low anterior bowel resection (05/2016) Past Anesthesia/Blood Transfusion Reactions: No Reported Reaction Additional Past Anesthesia/Blood Transfusion Reaction / Comment(s): no hx blood transfusion Past Psychological History: No Psychological Hx Reported Additional Psychological History / Comment(s): . Smoking Status: Current every day smoker Past Alcohol Use History: Occasional Additional Past Alcohol Use History / Comment(s): Pt states he started smoking about 1989, Smoking < 1ppd. He has quit during this time frame, once for 4 yrs. - has been smoking approx 24 years. States he drinks about 14 drinks per week. Past Drug Use History: None Reported - Past Family History Father Family Medical History: No Reported History, Vascular Disorder Additional Family Medical History / Comment(s): . Mother Family Medical History: Cancer, Pulmonary Embolus Additional Family Medical History / Comment(s): colon cancer Medications and Allergies Home Medications Medication Instructions Recorded Confirmed Type Ibuprofen 400 mg PO ONCE PRN 06/27/17 07/01/17 History Allergies Allergy/AdvReac Type Severity Reaction Status Date / Time No Known Drug Allergies Allergy Unknown Verified 07/01/17 06:57 Surgical - Exam Vital Signs Temp Pulse Resp BP Pulse Ox 97.4 F L 93 16 130/82 97 07/01/17 07:04 07/01/17 07:04 07/01/17 07:04 07/01/17 07:04 07/01/17 07:04 - General well developed, no distress - Eyes PERRL - ENT normal pinna - Neck no masses - Respiratory normal expansion - Cardiovascular Rhythm: regular - Abdomen Abdomen: soft, non tender Hernia: incisional (5 cm incisional hernia) Assessment and Plan Assessment: Incisional hernia. We'll perform laparoscopic robotic system repair.
[2017-07-01] MEDS ORDERED: LIDOCAINE 1% INJ 10MG/ML (20 ML MDV) ONE (08:23)
[2017-07-01] MEDS ORDERED: MIDAZOLAM 2 MG/2 ML VIAL ONE (08:23)
[2017-07-01] MEDS ORDERED: KETOROLAC 30 MG/ML 1 ML VIAL ONE (08:23)
[2017-07-01] MEDS ORDERED: ROPIVACAINE 5 MG/ML 30 ML VIAL ONE (08:23)
[2017-07-01] MEDS ORDERED: NEOSTIGMINE 1 MG/ML 10 ML VIAL ONE (08:23)
[2017-07-01] MEDS ORDERED: PROPOFOL 10 MG/ML 20 ML VIAL IV ONE (08:23)
[2017-07-01] MEDS ORDERED: fentaNYL (PF) 50 MCG/ML 2 ML AMP ONE (08:23)
[2017-07-01] MEDS ORDERED: ROCURONIUM BROMIDE 10 MG/ML 10 ML VIAL IV ONE (08:23)
[2017-07-01] MEDS ORDERED: GLYCOPYRROLATE 0.2 MG/ML 2 ML VIAL ONE (08:23)
[2017-07-01] MEDS ORDERED: HYDROmorphone (PF) 1 MG/ML ONE (08:23)
[2017-07-01] MEDS ORDERED: SUCCINYLCHOLINE CHLORIDE 100 MG/5 ML SYR IV ONE (08:23)
[2017-07-01] MEDS ORDERED: BUPIVACAINE (PF) 0.25% 30 ML VIAL SQ ONE (09:07)
[2017-07-01] MEDS ORDERED: LIDOCAINE 1%-EPI 1:100,000 30 ML VIAL SQ ONE (09:17)
[2017-07-01 09:51] VITALS: TEMP 97.6
[2017-07-01] MEDS ORDERED: MEPERIDINE 50 MG/ML SYRINGE IVP ONE ×2 (09:51→09:56)
[2017-07-01] MEDS ORDERED: LACTATED RINGERS 1,000 ML IV ONE (10:08)
[2017-07-01] MEDS ORDERED: fentaNYL (PF) 50 MCG/ML 2 ML AMP IVP ONE ×3 (10:19→10:25)
[2017-07-01] MEDS ORDERED: MIDAZOLAM 2 MG/2 ML VIAL IV ONE (10:27)
[2017-07-01] MEDS ORDERED: HYDROcodone/APAP 7.5-325MG 1 EACH TAB PO ONE (12:18)
--- NOTE | 2017-07-01 12:26 | P.ONQ ---
Anesthesiology Proc Note - PNB - Peripheral Nerve Block Performed Transversus Abdominis Single Time Out Performed: Yes Procedure Start Time: 12:28 Procedure Stop Time: 12:40 Indication: Acute Post-Operative Pain, Requested by physician Sedation Type: Sedate with meaningful contact maintained Preparation: Sterile Prep Position: Supine Needle Size: 50mm (2") Needle Gauge: 21 Technique: Ultrasound Injectate: 0.5% Ropivacaine (see comment for volume) (b/l tap block done with .5 % ropi 20cc each side) Blood Aspirated: No Pain Paresthesia on Injection Noted: No Resistance on Injection: Normal Events: Uneventful and Well Tolerated
[2017-07-01 12:45] VITALS: BP 129/89; PULSE 72; RESP 18
--- NOTE | 2017-07-10 12:23 | P.OP ---
Date of Procedure: 07/01/17 Preoperative Diagnosis: Incisional hernia Postoperative Diagnosis: Incisional hernia Procedure(s) Performed: Laparoscopic robotic-assisted repair of incisional hernia Laparoscopic lysis of adhesions Anesthesia: IRON Surgeon: Jose Juan Vail Estimated Blood Loss (ml): 5 Pathology: none sent Condition: stable Disposition: PACU Description of Procedure: The patient was placed on the operating table in the supine position. He received general anesthesia. His abdomen was prepped and draped usual fashion. Using a 5 mm optical trocar under direct visualization the peritoneal cavity was entered in the left upper quadrant. The abdomen was then insufflated. The laparoscope was placed back into the perineal cavity. Next a 8 mm robotic trocar was placed in the left lower quadrant and a 12 mm robotic trocar was placed in the left lateral position. The original 5 mm trocar was exchanged for a 8 mm robotic trocar. The patient's placed in the left side up position. And the patient was docked to the robot. The incisional hernia was visualized. There were adhesions noted to the incisional hernia. These were lysed using the hook cautery and robotic scissors. Using hook cautery the peritoneum over the incisional hernia was excised. The fascial opening was repaired using 0V LOC suture. Next a piece of 11 cm round ventral light ST mesh was placed into the. Cavity and secured with 2 OV lock suture. The patient was undocked the robot. The needles were retrieved. The fascia of the 12 mm trocar site was closed with 0 Ethibond suture. Skin was closed interrupted 3-0 Monocryl suture. Dermabond dressings was applied. Patient tolerated procedure well and was sent to recovery room stable condition.
== END 2017-07-01 13:46 | disposition home or self-care (01) ==
LOC: OR 06:46
PROVIDERS: ATTEND Surgery
DX: K43.2 Incisional hernia without obstruction or gangrene (principal); K66.0 Peritoneal adhesions (postprocedural) (postinfection); M19.90 Unspecified osteoarthritis, unspecified site; Z86.010 Personal history of colon polyps; F17.210 Nicotine dependence, cigarettes, uncomplicated
CPT/HCPCS: 86900; 86901; 86850; 49654; C1781; J2250; J1644; J1100; J2710; J2175; J2405; J2001; J3010; J1885; J1170; J2795; J0330; J2704; J0690

== ENCOUNTER 2021-05-24 09:52 | Day surgery (SDC) | payer BC ==
[2021-05-23 10:35] VITALS: BMI 25.4
[~2021-05-24 09:52] MED LIST changes: -DEXAMETHASONE SOD PHOSPHATE 10 MG/ML 1 ML VIAL IV ONE; -HEPARIN SODIUM,PORCINE 5,000 UNIT/ML 1 ML VIAL SQ ONE; -LACTATED RINGERS 1,000 ML IV SCH; +LIDOCAINE 1% (10MG/ML) FOR IV START INTRADERMA PRN; -LIDOCAINE 1% 20 ML VIAL (10MG/ML) FOR IV START INTRADERMA PRN; -MORPHINE SULFATE 2 MG/ML SYRINGE IV PRN; -ONDANSETRON 4 MG/2 ML VIAL IVP ONE; -SCOPOLAMINE 1.5MG/72HR PATCH TRANSDERM ONE; -ceFAZolin IN SWFI 2 GM/20 ML SYRINGE IVP ONE
[2021-05-24 10:07] VITALS: RESP 16; TEMP 97.9
[2021-05-24] MEDS: LACTATED RINGERS 1,000 ML IV SCH ×2 (10:18→11:25)
[2021-05-24] MEDS ORDERED: PROPOFOL 10 MG/ML 20 ML VIAL IV ONE (11:27)
--- NOTE | 2021-05-24 11:41 | P.GSHP ---
History of Present Illness H&P Date: 05/24/21 Chief Complaint: Diverticulitis This is a 45-year-old male with a previous history of diverticulitis. Patient underwent previous low anterior section. He's had complaints of left lower quadrant pain. He presents today for colonoscopy Past Medical History Past Medical History: Asthma, GERD/Reflux, GI Bleed, Osteoarthritis (OA) Additional Past Medical History / Comment(s): Hx Diverticulitis. Hx Asthma as a child. History of Any Multi-Drug Resistant Organisms: None Reported Past Surgical History: Appendectomy, Bowel Resection, Hernia Repair Additional Past Surgical History / Comment(s): Colonoscopies, polypectomy, incisional hernia repair. Past Anesthesia/Blood Transfusion Reactions: No Reported Reaction Additional Past Anesthesia/Blood Transfusion Reaction / Comment(s): No hx blood transfusion. Past Psychological History: No Psychological Hx Reported Smoking Status: Current every day smoker Past Alcohol Use History: Occasional Additional Past Alcohol Use History / Comment(s): Started smoking about 1989, smokes approx 1/2 ppd, quit during this time frame once for 4 yrs. Drinks 2 beers aprroximately every other day. Past Drug Use History: None Reported - Past Family History Father Family Medical History: Vascular Disorder Additional Family Medical History / Comment(s): . Mother Family Medical History: Cancer, Pulmonary Embolus Additional Family Medical History / Comment(s): Colon cancer. Medications and Allergies Home Medications Medication Instructions Recorded Confirmed Type rOPINIRole HCL [Requip] 0.5 mg PO HS 05/23/21 05/24/21 History Allergies Allergy/AdvReac Type Severity Reaction Status Date / Time No Known Drug Allergies Allergy Unknown Verified 05/24/21 10:04 Surgical - Exam Vital Signs Temp Pulse Resp BP Pulse Ox 97.9 F 117 H 16 143/61 96 05/24/21 10:06 05/24/21 10:06 05/24/21 10:06 05/24/21 10:06 05/24/21 10:06 - General well developed, well nourished, no distress - Eyes PERRL - ENT normal pinna - Neck no masses - Respiratory normal expansion - Cardiovascular Rhythm: regular - Abdomen Abdomen: soft, non tender Assessment and Plan Assessment: History diverticulitis. We'll perform colonoscopy
--- NOTE | 2021-05-24 11:43 | P.OP ---
Date of Procedure: 05/24/21 Preoperative Diagnosis: Diverticulitis Postoperative Diagnosis: Pandiverticulosis Procedure(s) Performed: Colonoscopy Anesthesia: MAC Surgeon: Jose Juan Vail Pathology: none sent Condition: stable Disposition: PACU Description of Procedure: The patient's placed on the endoscopy table in the lateral position. Seed IV sedation. Digital rectal exam was performed. This revealed internal and external hemorrhoids. The flexible colonoscope was then placed patient anus passed throughout the entire colon. Ileocecal valve was visualized. The cecum, ascending and transverse colon had scattered diverticula seen. In the descending colon there is more diverticula seen. The patient had a previous sigmoid sigmoid colectomy. The colorectal anastomosis was visualized. There is known to any inflammatory changes. The rectum appeared normal. Scope withdrawn for patient. The patient had temperature changes of the entire colon. However there is no evidence of any active diverticulitis.
[2021-05-24 12:04] VITALS: BP 125/83; PULSE 83
== END 2021-05-24 12:20 | disposition home or self-care (01) ==
LOC: ORWHC2ENDO 09:52
PROVIDERS: ATTEND Surgery
DX: K57.32 Diverticulitis of large intestine without perforation or abscess without bleeding (principal); M19.90 Unspecified osteoarthritis, unspecified site; J45.909 Unspecified asthma, uncomplicated
CPT/HCPCS: 45378; J2704

== ENCOUNTER → 2021-06-07 | Outpatient (CLI) | payer BC ==
--- NOTE | 2021-06-08 01:16 | CT ---
EXAMINATION TYPE: CT abdomen w con DATE OF EXAM: 06/07/2021 COMPARISON: CT dated 04/02/2016 HISTORY: abnormal pancreatic labs CT DLP: 527.3 mGycm Automated exposure control for dose reduction was used. TECHNIQUE: Helical acquisition of images was performed from the lung bases through the top of iliac crest to include entire abdomen. CONTRAST: Performed with Oral Contrast and with IV Contrast, patient injected with 100 mL of Isovue 300. FINDINGS: Unremarkable pancreas demonstrating homogenous parenchyma and normal enhancement. No definite pancrea tic lesion identified. No pancreatic duct dilatation. No definite hepatic focal lesion identified. Co ntracted gallbladder, probably due to incomplete fasting. No intra or extrahepatic biliary dilatation . Unremarkable spleen, adrenals and abdominal aorta. Bilateral extrarenal pelvis, otherwise unremarkable kidneys. Unremarkable stomach and duodenum. Very short segment of jejuno- jejunal intussusception is seen in the left side of the abdomen, likely repr esenting a benign transient intussusception. Unremarkable visualized small bowel otherwise with no ev idence of bowel obstruction. Scattered uncomplicated colonic diverticulosis. Fecal loading of the colon suggestive of constipation . No suspicious abdominal lymphadenopathy or ascites. Unremarkable lung bases. No aggressive bone les ion. IMPRESSION: No definite pancreatic abnormality identified. Incidental findings as described above.
== END | disposition home or self-care (01) ==
LOC: RADCTMAIN 15:09
PROVIDERS: ATTEND Family Medicine
DX: R79.9 Abnormal finding of blood chemistry, unspecified (principal); K57.32 Diverticulitis of large intestine without perforation or abscess without bleeding
CPT/HCPCS: 74160; Q9967